=== PATIENT | male | born 1930 | race Caucasian/White ===

== ENCOUNTER → 2016-12-26 | Outpatient (CLI) | payer BC ==
[~2016-12-26] MED LIST: CALCIUM PO; CHOL200010 PO; HYDC25 PO; LISI40TA PO; MULT-190 PO; MULT-506 PO; SERT100T PO; [UNRECOGNIZED DRUG - OTHER] PO
== END | disposition home or self-care (01) ==
LOC: C.RDSM 14:38
PROVIDERS: ATTEND Physical Medicine & Rehabilitation Sports Medicine
DX: M13.811 Other specified arthritis, right shoulder (principal)

== ENCOUNTER → 2017-02-22 | Outpatient (CLI) | payer BC ==
[2017-02-22 10:51] LABS: BASO % 0.3 %; BASO ABS # 0.03 K/uL (0-0.2); COMPLETE YES; EOS % 2.5 %; HEMATOCRIT 40.6 % (42-52); IG% 0.2 %; LYMPH % 27.3 %; MEAN CORPUSCULAR HEMOGLOBIN 29.7 pg (25-34); MEAN CORPUSCULAR HGB CONC 34.5 g/dl (32-36); MEAN PLATELET VOLUME 9.3 fL (7.4-10.4); NEUT % 61.7 %; PLATELET COUNT 266 K/uL (130-400); RED BLOOD COUNT 4.72 M/uL (4.7-6.1)
[2017-02-22 11:04] LABS: ALB/GLOB RATIO 0.9 (0.9-2); ALT/SGPT 26 U/L (12-78); BLOOD UREA NITROGEN 28 mg/dl (7-18); BUN/CREATININE RATIO 25.2 (10-20); CALCIUM 8.8 mg/dl (8.5-10.1); CARBON DIOXIDE 28 mmol/L (21-32); CHLORIDE 107 mmol/L (98-107); FERRITIN 31.3 ng/ml (8.0-388.0); GLUCOSE 99 mg/dl (70-99); HDL CHOLESTEROL 42 mg/dl; POTASSIUM 3.9 mmol/L (3.5-5.1); SODIUM 141 mmol/L (136-145)
[2017-02-22 11:13] LABS: ALKALINE PHOSPHATASE 55 U/L (45-117); AST/SGOT 24 U/L (15-37); CHOLESTEROL 206 mg/dl (0-200); CHOLESTEROL/HDL RATIO 4.9; LDL CHOLESTEROL CALCULATED 125 mg/dl; TRIGLYCERIDES 196 mg/dl (0-150); VERY LOW DENSITY LIPOPROT CALC 39 mg/dl
[2017-02-22 11:15] LABS: ESTIMATED AVERAGE GLUCOSE 117 mg/dl; HA1C FLAG Normal (Normal)
--- NOTE | 2017-03-02 10:48 | CODING QUERY MEDICAL NECESSITY ---
TREATMENT RENDERED WITHOUT A DIAGNOSIS To promote full compliance with coding requirements relating to patient care, physician participation is requested in all cases of asw specialist uncertainty. Please assist us with providing a diagnosis/symptom for the test(s) below: A diagnosis/symptom was not documented on your Order. A valid diagnosis/symptom is required to bill all insurances. Please remember that we are unable to code a diagnosis of rule out, probable, possible, questionable, or suspected. Tests that require a diagnosis: * VITAMIN B12 DIAGNOSIS: Provider Signature: Date: Thank you Lory Will [employer] Once completed, please kindly fax back to [phone] For questions please call [phone]
== END | disposition home or self-care (01) ==
LOC: C.LABBC 07:31
PROVIDERS: ATTEND Internal Medicine
DX: D64.9 Anemia, unspecified (principal); E78.5 Hyperlipidemia, unspecified; R73.9 Hyperglycemia, unspecified; G62.9 Polyneuropathy, unspecified

== ENCOUNTER → 2017-03-30 | Outpatient (CLI) | payer BC ==
[2017-03-30 17:12] LABS: BLOOD UREA NITROGEN 30 mg/dl (7-18)
== END | disposition home or self-care (01) ==
LOC: C.LABBC 15:06
PROVIDERS: ATTEND Physical Medicine & Rehabilitation
DX: M48.06 Spinal stenosis, lumbar region (principal)

== ENCOUNTER → 2017-04-04 | Outpatient (CLI) | payer BC ==
[~2017-04-04] MED LIST changes: +GADAVIST IV PRN
--- NOTE | 2017-04-04 09:14 | DIAGNOSTIC IMAGING REPORT ---
LUMBAR SPINE COMBINATION HISTORY:86 yearsMaleLUMBAR PAIN . Bilateral leg weakness. History of prior lumbar decompression (prior left L4-L5 hemilaminectomy). COMPARISON: 06/12/2015 TECHNIQUE: Multiplanar multisequence MRI of the lumbar spine was obtained both with and without the use of 8 mL Gadavist IV contrast. FINDINGS: Conus medullaris terminates at the L1 level. Signal within the cord is unremarkable. There is no focal bone or soft tissue edema identified. No fracture or marrow replacing process. The imaged intra-abdominal intrapelvic structures demonstrate no acute abnormality. There is mild atrophy of the paraspinal musculature. Prior left hemilaminectomy at L4-L5. Partially imaged T11-T12 level appears unremarkable the sagittal imaging alone. T12-L1 also demonstrates no central canal or foraminal narrowing. L1-L2: Moderate facet arthropathy without central canal or foraminal narrowing. L2-L3: Moderate intervertebral disc space narrowing with posterior spondylitic spurring, facet arthropathy, ligamentum flavum redundancy, facet effusions and circumferential annular disc bulge. There is resultant mild central canal and right foraminal narrowing. Left foramen is patent. No significant change. L3-L4: Moderate intervertebral disc space narrowing with posterior spondylitic ridging, annular fissure and circumferential annular disc bulge in conjunction with moderate facet arthropathy, facet effusions and ligamentum flavum redundancy. This again causes moderate central canal and mild right foraminal narrowing. Left foramen is patent. L4-L5: Prior left hemilaminectomy. Unchanged 6 mm anterolisthesis L4 on L5 is likely on a degenerative basis as there is severe facet arthropathy and facet effusions at this level. Broad-based posterior disc bulge effaces the ventral thecal sac. There is unchanged mild left foraminal narrowing. The right foramen and central canal are patent. There is minimal posterior epidural enhancement at this level is likely postsurgical granulation tissue without significant mass effect or narrowing. L5-S1: Moderate facet disease with ligamentum flavum redundancy and facet effusions cause mild by foraminal narrowing. Central canal is patent. Unchanged. IMPRESSION: 1. Stable exam with redemonstration of prior left L4-L5 hemilaminectomy. Mild posterior epidural enhancement at this interspace likely reflects expected granulation tissue without significant narrowing of the central canal or neural foramen. 2. At L3-L4 combination of disc disease and facet arthropathy is again seen causing moderate central canal and mild right foraminal narrowing. 3. Additional unchanged discogenic degenerative changes at L2-L3 and L5-S1. 4. No focal bone marrow edema or compression fracture. The above report was generated using voice recognition software. It may contain grammatical, syntax or spelling errors. Electronically signed by: Zfeerino Briseno 04/04/2017 9:12 AM Dictated Date/Time: 04/04/2017 9:03 AM
== END | disposition home or self-care (01) ==
LOC: C.MRIBC 07:23
PROVIDERS: ATTEND Physical Medicine & Rehabilitation
DX: M48.06 Spinal stenosis, lumbar region (principal)

== ENCOUNTER → 2017-05-10 | Outpatient (CLI) | payer BC ==
[~2017-05-10] MED LIST changes: -GADAVIST IV PRN
--- NOTE | 2017-05-10 08:33 | DIAGNOSTIC IMAGING REPORT ---
CHEST 2 VIEWS ROUTINE CLINICAL HISTORY: Z01.818 Preoperative [id number] COMPARISON STUDY: 08/21/2012 FINDINGS: There is a stable thoracic scoliosis. The heart is normal in size. There is stable aortic tortuosity/ectasia. There is no failure. There is no focal pulmonary consolidation. There are no pleural effusions.[ IMPRESSION: No active disease in the chest. Electronically signed by: Jerry Link M.D. 05/10/2017 8:32 AM Dictated Date/Time: 05/10/2017 8:31 AM
== END | disposition home or self-care (01) ==
LOC: C.RAD 07:58
PROVIDERS: ATTEND Internal Medicine
DX: Z01.818 Encounter for other preprocedural examination (principal)

== ENCOUNTER → 2017-05-26 | Outpatient (CLI) | payer BC ==
[2017-05-26 09:41] LABS: BASO % 0.4 %; BASO ABS # 0.04 K/uL (0-0.2); COMPLETE YES; EOS % 3.4 %; HEMATOCRIT 40.9 % (42-52); IG% 0.3 %; LYMPH % 28.5 %; LYMPH ABS # 2.68 K/uL (1.2-3.4); MEAN CELL VOLUME 87.6 fL (80-100); MEAN CORPUSCULAR HEMOGLOBIN 29.1 pg (25-34); MEAN CORPUSCULAR HGB CONC 33.3 g/dl (32-36); MEAN PLATELET VOLUME 9.2 fL (7.4-10.4); MONO % 6.5 %; NEUT % 60.9 %; PLATELET COUNT 271 K/uL (130-400); RED BLOOD COUNT 4.67 M/uL (4.7-6.1); WHITE BLOOD COUNT 9.42 K/uL (4.8-10.8)
[2017-05-26 09:53] LABS: INR 1.1 (0.9-1.1); PROTHROMBIN TIME (PATIENT) 11.6 SECONDS (9.0-12.0)
[2017-05-26 10:08] LABS: BLOOD UREA NITROGEN 26 mg/dl (7-18); BUN/CREATININE RATIO 21.9 (10-20); CALCIUM 8.9 mg/dl (8.5-10.1); CARBON DIOXIDE 28 mmol/L (21-32); CHLORIDE 107 mmol/L (98-107); GLUCOSE 85 mg/dl (70-99); POTASSIUM 4.4 mmol/L (3.5-5.1); SODIUM 140 mmol/L (136-145)
== END | disposition home or self-care (01) ==
LOC: C.LAB 08:46
PROVIDERS: ATTEND Neurological Surgery
DX: Z01.812 Encounter for preprocedural laboratory examination (principal); R79.1 Abnormal coagulation profile

== ENCOUNTER → 2017-08-23 | Outpatient (CLI) | payer BC ==
[2017-08-23 10:54] LABS: HEMATOCRIT 40.2 % (42-52); MEAN CELL VOLUME 87.6 fL (80-100); MEAN CORPUSCULAR HEMOGLOBIN 29.2 pg (25-34); MEAN CORPUSCULAR HGB CONC 33.3 g/dl (32-36); MEAN PLATELET VOLUME 9.4 fL (7.4-10.4); PLATELET COUNT 266 K/uL (130-400); RED BLOOD COUNT 4.59 M/uL (4.7-6.1)
[2017-08-23 11:09] LABS: ESTIMATED AVERAGE GLUCOSE 111 mg/dl; HA1C FLAG Normal (Normal)
[2017-08-23 11:32] LABS: BLOOD UREA NITROGEN 34 mg/dl (7-18); BUN/CREATININE RATIO 26.9 (10-20); CALCIUM 8.8 mg/dl (8.5-10.1); CARBON DIOXIDE 28 mmol/L (21-32); CHLORIDE 101 mmol/L (98-107); CREATININE 1.27 mg/dl (0.60-1.40); GLUCOSE 107 mg/dl (70-99); SODIUM 134 mmol/L (136-145)
[2017-08-23 11:35] LABS: CHOLESTEROL 205 mg/dl (0-200); HDL CHOLESTEROL 51 mg/dl; LDL CHOLESTEROL CALCULATED 121 mg/dl; TRIGLYCERIDES 164 mg/dl (0-150); VERY LOW DENSITY LIPOPROT CALC 33 mg/dl
== END | disposition home or self-care (01) ==
LOC: C.LABBC 07:37
PROVIDERS: ATTEND Internal Medicine
DX: R73.9 Hyperglycemia, unspecified (principal); D72.829 Elevated white blood cell count, unspecified; E78.5 Hyperlipidemia, unspecified

== ENCOUNTER 2017-12-12 09:34 | Observation (INO) | payer BC, OTHER ==
[2017-11-14 09:37] VITALS: BMI 32.0
--- NOTE | 2017-11-14 10:10 | PAT Medication Instructions ---
Service Date Nov 14, 2017. Current Home Medication List , 1 TABLETS PO QAM Aripiprazole (Abilify), 2 MG PO PRN Cholecalciferol (Vitamin D), 2,000 INTUNIT PO QAM Epinephrine (Epipen), 0.3 MG IM UD Hydrochlorothiazide (Hydrochlorothiazide), 1 TAB PO QAM Lisinopril (Zestril), 20 MG PO QAM Multivitamin (Multivitamin), 1 TAB PO QAM Ocuvite Preservision (Ocuvite Preservision), 1 TAB PO QAM Sertraline Hcl (Zoloft), 150 MG PO QAM Medication Instructions For Your Scheduled Surgery - Hold the following medications the morning of surgery: Cholecalciferol (Vitamin D), 2,000 INTUNIT PO QAM Hydrochlorothiazide (Hydrochlorothiazide), 1 TAB PO QAM Lisinopril (Zestril), 20 MG PO QAM Multivitamin (Multivitamin), 1 TAB PO QAM Ocuvite Preservision (Ocuvite Preservision), 1 TAB PO QAM - Take the following medications the morning of surgery with a sip of water: Sertraline Hcl (Zoloft), 150 MG PO QAM Epinephrine (Epipen), 0.3 MG IM UD (if needed) Aripiprazole (Abilify), 2 MG PO PRN (if needed) - Take the following medications as scheduled the night before surgery: Epinephrine (Epipen), 0.3 MG IM UD (if needed) Aripiprazole (Abilify), 2 MG PO PRN (if needed) If you have any questions please call us at [phone] or [phone] or [phone]
[2017-11-14 11:05] LABS: BASO % 0.3 %; BASO ABS # 0.03 K/uL (0-0.2); EOS % 2.5 %; EOS ABS # 0.24 K/uL (0-0.5); HEMOGLOBIN 13.2 g/dL (14.0-18.0); IG# 0.03 K/uL (0.00-0.02); LYMPH % 24.2 %; LYMPH ABS # 2.31 K/uL (1.2-3.4); MEAN CELL VOLUME 85.2 fL (80-100); MEAN CORPUSCULAR HEMOGLOBIN 28.8 pg (25-34); MEAN CORPUSCULAR HGB CONC 33.8 g/dl (32-36); MONO % 7.9 %; MONO ABS # 0.75 K/uL (0.11-0.59); NEUT % 64.8 %; NEUT ABS # 6.18 K/uL (1.4-6.5); PLATELET COUNT 244 K/uL (130-400); RED CELL DISTRIBUTION WIDTH CV 14.6 % (11.5-14.5); RED CELL DISTRIBUTION WIDTH SD 45.5 fL (36.4-46.3); WHITE BLOOD COUNT 9.54 K/uL (4.8-10.8)
[2017-11-14 11:16] LABS: CALCIUM 9.2 mg/dl (8.5-10.1); CREATININE 1.11 mg/dl (0.60-1.40); INR 1.1 (0.9-1.1); POTASSIUM 4.3 mmol/L (3.5-5.1)
--- NOTE | 2017-12-11 22:03 | HISTORY & PHYSICAL EXAMINATION ---
DATE OF ADMISSION: 12/12/2017 CHIEF COMPLAINT: Primary osteoarthritis of the right shoulder. HISTORY OF PRESENT ILLNESS: Jordon is a pleasant 87-year-old male who has been dealing with a 1 year history of chronic increasing right shoulder pain. His symptoms actually started back in 1948 when he dislocated his shoulder playing football. He had it reduced on the field. He has had on and off low grade shoulder symptoms since. Over the last year his shoulder has gotten much worse. This has gotten to the point to where he is having trouble sleeping at night and doing any simple activities away from his body. He is living in constant shoulder pain. X-rays and clinical examination in my office demonstrated advanced osteoarthritis of the shoulder. We tried conservative treatment, but it failed. His shoulder pain is affecting his quality of life. We discussed his age and he would still like to proceed with a right total shoulder arthroplasty. PAST MEDICAL HISTORY: Significant for depression and hypertension. PAST SURGICAL HISTORY: Significant for varicose veins, total hip arthroplasty, cataracts and 2 back surgeries. ALLERGIES: None. MEDICATIONS: Include hydrochlorothiazide, lisinopril, Zoloft, vitamin D3, calcium, Aleve and Abilify. FAMILY HISTORY: Significant for Alzheimer's disease. SOCIAL HISTORY: The patient is , rarely drinks and remains active. REVIEW OF SYSTEMS: He complains mostly of right shoulder pain. All other pertinent review of systems are negative. PHYSICAL EXAMINATION: GENERAL: He is awake, alert and orient x3. He is in no apparent distress. He is very pleasant. HEENT: Pupils equal, round and reactive to light. Extraocular motion intact. Oral mucosa is pink and moist. HEART: Regular rate per radial pulse. LUNGS: Carmen symmetrically bilaterally with no audible breath sounds. ABDOMEN: Soft, nontender, nondistended. MUSCULOSKELETAL: On physical examination of the right shoulder, he does have a down slope to his right shoulder compared to the left. He has active elevation, about 120 degrees of forward elevation, 100 degrees of abduction. He has 5/5 muscle strength with full can test and external rotation. Negative belly press test. He has a lot of crepitus with range of motion versus pain located over the anterior glenohumeral joint line. IMAGING DATA: X-rays of the shoulder do show advanced osteoarthritis. There is joint space narrowing and osteophyte formation. There is mostly central wear of the glenoid. IMPRESSION: Advanced osteoarthritis of the right shoulder. PLAN: We will proceed with a Biomet comprehensive right total shoulder arthroplasty. Postoperatively, he will be placed in an arm sling and kept overnight for postoperative medical management.
[~2017-12-12] VITALS: Ht 167.6 cm; Wt 86.4 kg
[2017-12-12] VITALS (8 sets, daily range): BP systolic 111–165; BP diastolic 61–84; PULSE 71–80; TEMP 36.3–36.8; O2SAT 95–98; Ht 167.6 cm; Wt 86.4 kg
[~2017-12-12 09:34] MED LIST changes: +ACETAMINOPHEN 500 MG TAB PO SCH; +ARIP2TAB3 PO; +BUPIVACAINE 0.5 % 5 MG/1 ML PF 10ML VIAL ONE; +CEFAZOLIN 2000MG IV PUSH 15 ML IV SCH; +EPP3/2 IM; +EpINEphrine INJ 1MG/ML AMP 1 MG/ML AMP ONE; +FAMOTIDINE 20 MG TAB PO SCH; +GABAPENTIN 300 MG CAP PO SCH; -HYDC25 PO; +HYDR12.55 PO; +LACTATED RINGER'S 1000ML 1,000 ML IV SCH; +LACTATED RINGER'S 1000ML IV SCH; +ROPIVACAINE 0.5% 5 MG/ML 30 ML VIAL ONE; +ROPIVACAINE 5MG/ML 30 ML 150 MG, BUPIVACAINE 0.5% MPF INJ 30 ML, EpINEphrine HCL INJ 0.... INFIL SCH
--- NOTE | 2017-12-12 11:29 | History & Physical Bridge Note ---
H&P Re-Evaluation Bridge Note: I have examined the patient, reviewed the History & Physical and in the interval since the performance of the History & Physical I have noted the following changes of clinical significance: No changes noted
[2017-12-12] MEDS ORDERED: BACITRACIN 50000 UNIT VIAL ONE (11:51)
[2017-12-12] MEDS ORDERED: FENTANYL CITRATE INJ 50 MCG/1 ML 2 ML VIAL ONE ×2 (11:57→13:16)
[2017-12-12] MEDS ORDERED: MIDAZOLAM HCL 1 MG/ML 2ML VIAL ONE (11:57)
[2017-12-12] MEDS ORDERED: ATROPINE SULFATE 0.1 MG/ML 5ML SYR IV PRN (12:15)
[2017-12-12] MEDS ORDERED: FENTANYL CITRATE INJ 50 MCG/1 ML 2 ML VIAL IV PRN (12:15)
[2017-12-12] MEDS ORDERED: EpHEDrine SULFATE INJ 50 MG/ML AMP IV PRN (12:15)
[2017-12-12] MEDS ORDERED: ONDANSETRON INJ 2 MG/ML 2 ML VIAL IV PRN ×2 (12:15→14:15)
[2017-12-12] MEDS ORDERED: HYDROmorphone INJ 1 MG/ML SYR IV PRN (12:15)
[2017-12-12] MEDS ORDERED: CEFAZOLIN SOD 2000MG/15 ML IV PUSH IV ONE (12:17)
[2017-12-12] MEDS ORDERED: ORTHO JOINT ANESTHETIC ONE (12:19)
[2017-12-12] MEDS ORDERED: NURSING VERBAL MED ORDER STA (12:20)
[2017-12-12] MEDS: TRANEXAMIC ACID INJ 1,000 MG x 2 Bags IV SCH ×4 (12:27→16:26)
[2017-12-12] MEDS ORDERED: PROPOFOL IV EMULSION 10 MG/ML 20 ML VIAL IV ONE (13:14)
[2017-12-12] MEDS ORDERED: LIDOCAINE HCL 2% 2 ML VIAL (20MG/ML) ONE (13:14)
[2017-12-12] MEDS ORDERED: DEXAMETHASONE SOD INJ 4 MG/ML VIAL ONE (13:14)
[2017-12-12] MEDS ORDERED: ONDANSETRON INJ 2 MG/ML 2 ML VIAL ONE (13:14)
--- NOTE | 2017-12-12 14:08 | [facility] Post Operative Brief Note ---
Immediate Operative Summary Operative Date Dec 12, 2017. Pre-Operative Diagnosis Advanced osteoarthritis of the right shoulder Post-Operative Diagnosis Advanced osteoarthritis of the right shoulder Procedure(s) Performed Right Total Shoulder Arthroplasty-Cemented Surgeon Dr. Schwartz Caramel Candy Maker Surgeon(s) Keron Mendoza PA-C Estimated Blood Loss 200 ml Findings Consistent with Post-Op Diagnosis Specimens A. Right Humeral Head Anesthesia Type General Regional Complication(s) none Disposition Disposition: Recovery Room / PACU
[2017-12-12] MEDS ORDERED: NALOXONE HCL 0.4 MG/1 ML VIAL/CARP IV PRN (14:15)
[2017-12-12] MEDS ORDERED: OXYCODONE HCL IR 5 MG TAB (IMMEDIATE RELEASE) PO PRN (14:15)
[2017-12-12] MEDS ORDERED: BISACODYL 10 MG SUPP PR PRN (14:15)
[2017-12-12] MEDS ORDERED: METOCLOPRAMIDE HCL INJ 5 MG/ML 2 ML VIAL IV PRN (14:15)
[2017-12-12] MEDS ORDERED: MoRPHine SULFATE 2 MG/ML CARP IV PRN (14:15)
[2017-12-12] MEDS ORDERED: MAGNESIUM HYDROXIDE SUSP 30 ML UDC PO PRN (14:15)
[2017-12-12] MEDS ORDERED: SOD PHOSPHATE/SOD BIPHOSPHATE ENEMA 132 ML BTL PR PRN (14:15)
[2017-12-12] MEDS ORDERED: PHENYLEPHRINE 100MCG/ML 5ML SYR ONE (14:38)
--- NOTE | 2017-12-12 14:40 | OPERATIVE REPORT ---
DATE OF OPERATION: 12/12/2017 PREOPERATIVE DIAGNOSIS: Primary osteoarthritis of the right shoulder. POSTOPERATIVE DIAGNOSIS: Same. PROCEDURE: Right total shoulder arthroplasty. SURGEON: Dr. Seth Schwartz. [employer]: Keron Mendoza PA-C, whose assistance was necessary for positioning the arm and helping with instrumentation and closure. ANESTHESIA: General with a right interscalene nerve block. COMPLICATIONS: None. CONDITION: Stable to PACU. IMPLANTS USED: I used a Biomet comprehensive right total shoulder arthroplasty system with a size 17 mini pressfit stem, a medium sized glenoid with a Regenerex peg and a 46 x 18 mm eccentric humeral head. INDICATIONS: Jordon is a pleasant 87-year-old male who presented to my office with chronic increasing right shoulder pain. X-rays and clinical examination were diagnostic for primary osteoarthritis of the right shoulder. After failing conservative treatment and after discussions about his age and his poor quality of life because of shoulder pain, he elected to undergo a total shoulder arthroplasty. DESCRIPTION OF PROCEDURE: On 12/12/2017, he arrived at [facility] for the above procedure. He was seen in the preoperative holding area and the operative extremity was identified and signed. He was given a preoperative antibiotic and a right interscalene nerve block. He was taken back to the operating room, laid on the table in supine position and put under general anesthesia. He was then put into the beachchair position. The right shoulder was prepped and draped in sterile fashion. Time-out was done and the patient's operative extremity was properly identified. A deltopectoral approach was used. Dissection was taken down through the fascia and the anterior shoulder was exposed. The long head of the biceps tendon was tenodesed to the upper border of the pec major and the rotator interval was opened. The subscapularis was tenotomized off the lesser tuberosity with a centimeter of cuff tissue remaining. The proximal humerus was exposed. Sequential reaming up to a size 17 reamer was done. Off that reamer, a proximal humeral resection guide was placed and the proximal humerus was resected at 135 degrees of inclination and 30 degrees of retroversion. Osteophytes were removed. The head was removed and the glenoid was exposed. Time was spent doing a circumferential capsular and labral release. The Biomet signature guide was then snapped on to the anterior glenoid. A guide pin was sent down the total shoulder arthroplasty hole. A medium propeller reamer was used to ream the glenoid. The central peg hole was then drilled followed by 3 peripheral peg holes. A trial glenoid was used and showed excellent fit. The final glenoid was then cemented into place. The surrounding soft tissues were then injected with 100 mL of an orthopedic pain control cocktail. The proximal humerus was then exposed. Sequential broaching up to a size 17 broach was done. Off that broach, a trial 46 x 18 mm head was used. The shoulder was reduced, brought through a full range of motion and felt to be stable. The trial components were then removed. The final size 17 mini stem was then impacted into place. A 46 x 18 mm eccentric head was then impacted onto the stem. The shoulder was reduced. The subscapularis was then tenodesed back to the lesser tuberosity with transosseous FiberWire sutures and [id number] sutures. A single suture was placed in the lateral rotator interval. The axillary nerve was palpated. The wound was then irrigated with 3 liters of normal saline solution with bacitracin. A drain was placed. Skin was closed with 2-0 Vicryl, 3-0 V-Loc suture and gardenia. He was then placed in a soft dressing and regular arm sling. He was then extubated, transferred to a litter and taken to the postanesthesia care unit in stable condition. He tolerated the procedure well. I attest to the content of the Intraoperative Record and any orders documented therein. Any exception s are noted below.
--- NOTE | 2017-12-12 15:14 | Anesthesiology Progress Note ---
Anesthesia Post Op Note Date & Time Dec 12, 2017 at 15:14 Vital Signs Pain Intensity: 0 Vital Signs Past 12 Hours Date Time Temp Pulse Resp B/P (MAP) Pulse Ox O2 Delivery O2 Flow Rate FiO2 12/12/17 15:05 36.2 76 16 119/70 95 Nasal Cannula 2 12/12/17 14:55 79 16 148/74 96 Nasal Cannula 2 12/12/17 14:45 74 16 131/73 96 Oxymask 10 12/12/17 14:35 76 16 128/73 100 Oxymask 10 12/12/17 14:26 36.2 76 16 144/70 100 Oxymask 10 12/12/17 10:14 36.5 77 20 126/61 97 Room Air Notes Mental Status: alert / awake / arousable, participated in evaluation Pt Amnestic to Procedure: Yes Nausea / Vomiting: adequately controlled Pain: adequately controlled Airway Patency, RR, SpO2: stable & adequate BP & HR: stable & adequate Hydration State: stable & adequate Anesthetic Complications: no major complications apparent
--- NOTE | 2017-12-12 15:14 | DIAGNOSTIC IMAGING REPORT ---
R SHOULDER MIN 2 VIEWS ROUTINE HISTORY: 87 years-old Male Post shoulder surgery right shoulder arthroplasty. Degenerative joint disease. COMPARISON: Right shoulder radiographs 12/26/2016 TECHNIQUE: 2 views of the right shoulder FINDINGS: Postoperative changes from right shoulder arthroplasty. Alignment appears satisfactory without evidence of periprosthetic fracture. No retained foreign body identified. Skin gardenia are noted along with a surgical drain and expected postsurgical soft tissue swelling and deep tissue air. The right lung appears hypoinflated with right basilar opacities suggesting atelectasis. IMPRESSION: Right shoulder arthroplasty with satisfactory alignment. The above report was generated using voice recognition software. It may contain grammatical, syntax or spelling errors. Electronically signed by: Zeferino Briseno M.D. 12/12/2017 3:13 PM Dictated Date/Time: 12/12/2017 3:12 PM
[2017-12-12] MEDS ORDERED: IV FLUIDS COMPLETED PRN (15:15)
[2017-12-12] MEDS ORDERED: ARIPIprazole 1 MG/ML ORAL SOLN 150 ML BTL PO PRN (16:00)
[2017-12-12] MEDS: POTASSIUM CHLORIDE INJ 10 MEQ in SODIUM CHLORIDE 0.9% 1000ML 1,000 ML IV SCH (16:24)
[2017-12-12] MEDS: CEFAZOLIN IV 2,000 MG in SYRINGE 0 ML IV SCH (20:15)
[2017-12-12] MEDS: DOCUSATE SODIUM 100 MG CAP PO SCH (20:22)
[2017-12-12] MEDS ORDERED: SENNA 8.6 MG TAB PO SCH (21:00)
[2017-12-12] MEDS: ACETAMINOPHEN IV 1,000 MG in EMPTY BAG 0 ML IV SCH (22:36)
[2017-12-13] MEDS: POTASSIUM CHLORIDE INJ 10 MEQ in SODIUM CHLORIDE 0.9% 1000ML 1,000 ML IV SCH (02:22)
[2017-12-13 03:25] VITALS: BP 111/69; PULSE 67; TEMP 36.5; O2SAT 94
[2017-12-13] MEDS: CEFAZOLIN IV 2,000 MG in SYRINGE 0 ML IV SCH (04:06)
[2017-12-13] MEDS: ACETAMINOPHEN IV 1,000 MG in EMPTY BAG 0 ML IV SCH (05:21)
[2017-12-13] MEDS ORDERED: RXC5 PO (07:08)
--- NOTE | 2017-12-13 07:09 | Discharge Instructions ---
Discharge Instructions Date of Service Dec 13, 2017. Admission Reason for Admission: Right Shoulder Degenerative Joint Disease Discharge Discharge Diagnosis / Problem: Right Total Shoulder Discharge Goals Goal(s): Decrease discomfort, Improve function Activity Recommendations Activity Limitations: as noted below . Instructions / Follow-Up Instructions / Follow-Up Activity and Therapy Recommendations: * Wear your sling for 3 weeks, unless otherwise instructed. You may remove your sling to shower and to dress, but otherwise, you should be in your sling at all times, including while sleeping * The shoulder replacement is very stable and you can use your hand while in the sling * Physical Therapy should start about 3-5 days from your day of surgery. Therapy will last about 8-12 weeks * You were shown a series of exercises in the hospital. Do these exercises daily including the exercises you were shown in physical therapy. Medications: * Narcotic You will likely be sent home from the hospital with a prescription for the narcotic pain medication that worked best throughout your stay. * Other medications may be prescribed for specific circumstances. If you have any questions, please call the office at . * Resume previous home medications unless otherwise instructed Showering: You may shower 5 days from the day of surgery. Let the soapy shower water run over the gardenia. Do not scrub or soak the incision. Things To Watch For: * Drainage from the incision site that occurs more than one week after your surgery. * Increased redness at the incision site. * Fever above 102 degrees Fahrenheit. * Unusual chest pain or shortness of breath. * Call [facility] at with any of the above problems Follow-Up Visit: Follow-up with Dr. Schwartz 2 weeks after your day of surgery. An appointment was probably scheduled when you signed-up for surgery in the office. If you have any questions call Office Instructions: More detailed instructions as well as Frequently Asked Questions were provided in a folder by our office when you signed-up for surgery. Please review these instructions when you get home. If you have any further questions or concerns, please feel free to call the office at [phone] Current Hospital Diet Patient's current hospital diet: Regular Diet Discharge Diet Recommended Diet: Regular Diet Procedures Procedures Performed: Right Total Shoulder Arthroplasty-Cemented Pending Studies Studies pending at discharge: no Medical Emergencies . Who to Call and When: Medical Emergencies: If at any time you feel your situation is an emergency, please call 911 immediately. . Non-Emergent Contact Non-Emergency issues call your: Surgeon Call Non-Emergent contact if: wound has increased drainage, wound has increased redness . "Provider Documentation" section prepared by Seth Schwartz. .
[2017-12-13 07:25] VITALS: BP 112/68; PULSE 62; TEMP 36.6; O2SAT 91
[2017-12-13 07:30] VITALS: O2SAT 91
--- NOTE | 2017-12-13 07:43 | PROGRESS NOTE ---
DATE: 12/13/2017 CHIEF COMPLAINT: Status post right total shoulder arthroplasty postop day #1. PROGRESS: Jordon was seen and examined at bedside today. Overall, he is doing very well. He has very little pain in the shoulder. He has no complaints. PHYSICAL EXAMINATION: RIGHT SHOULDER: The dressing is clean and dry and the drain is to suction. He is wearing a sling as instructed. His radial, median and ulnar nerves were checked and intact at his wrist. His axillary nerve was not checked yet. LABORATORY DATA: Still pending. His vital signs are all stable on room air. He is voiding on his own. X-rays postoperatively of the right shoulder show the prosthesis to be in anatomic alignment without any evidence of fracture, dislocation or loosening. IMPRESSION: Status post right total shoulder arthroplasty postop day #1. PLAN: At this point, he is doing well. He will be seen by physical therapy today to do hand, wrist, elbow and pendulum exercises. The nursing staff can change the dressing, pull the drain and discharge him to home later this morning.
--- NOTE | 2017-12-13 07:46 | DISCHARGE SUMMARY ---
DISCHARGE DIAGNOSIS: Primary osteoarthritis of the right shoulder. PROCEDURE: Right total shoulder arthroplasty on 12/12/[address] Seth Schwartz. DISCHARGE INSTRUCTIONS: 1. Oxycodone 5 mg every 4 hours as needed for pain. 2. Abilify 2 mg as needed. 3. Hydrochlorothiazide 12.5 mg daily. 4. Zestril 20 mg daily. 5. Zoloft 150 mg daily. 6. Continue all other vitamins minerals. 7. Right arm sling for 3 weeks. 8. Follow up with Dr. Schwartz in 2 weeks. 9. Call the office of Dr. Schwartz with any questions or concerns. HOSPITAL COURSE: Jordon is an 87-year-old male who presented to my office with complaints of chronic increasing right shoulder pain. X-ray and clinical examination were diagnostic for primary osteoarthritis of the right shoulder. It was affecting his quality of life. After discussions regarding his age, we elected to proceed with a total shoulder arthroplasty. On 12/12/2017, he arrived at [facility] and underwent a right total shoulder arthroplasty without complication. He had a general anesthetic and a right interscalene nerve block. Postoperatively, he was placed in an arm sling and discharged to general orthopedic floor. His hospital course was uneventful. On postop day #1, he was having very little pain in the shoulder. He was up and ambulating well with physical therapy and able to do hand, wrist, elbow and pendulum exercises. The nursing staff can change the dressing and pull the drain. He was subsequently discharged to home with the above instructions.
[2017-12-13 08:23] LABS: HEMATOCRIT 32.7 % (42-52); HEMOGLOBIN 11.1 g/dL (14.0-18.0); MEAN CELL VOLUME 85.8 fL (80-100); MEAN CORPUSCULAR HEMOGLOBIN 29.1 pg (25-34); MEAN CORPUSCULAR HGB CONC 33.9 g/dl (32-36); MEAN PLATELET VOLUME 8.7 fL (7.4-10.4); PLATELET COUNT 189 K/uL (130-400); RED CELL DISTRIBUTION WIDTH CV 14.6 % (11.5-14.5); RED CELL DISTRIBUTION WIDTH SD 45.7 fL (36.4-46.3); WHITE BLOOD COUNT 12.99 K/uL (4.8-10.8)
[2017-12-13 08:54] LABS: CALCIUM 7.9 mg/dl (8.5-10.1); CREATININE 1.36 mg/dl (0.60-1.40); POTASSIUM 4.1 mmol/L (3.5-5.1)
[2017-12-13] MEDS ORDERED: LISINOPRIL 20 MG TAB PO SCH (09:00)
[2017-12-13] MEDS ORDERED: SERTRALINE HCL 50 MG TAB PO SCH (09:00)
[2017-12-13] MEDS ORDERED: MULTIVITAMIN TAB PO SCH (09:00)
[2017-12-13] MEDS ORDERED: HYDROCHLOROTHIAZIDE 25 MG TAB PO SCH (09:00)
[2017-12-13] MEDS: DOCUSATE SODIUM 100 MG CAP PO SCH (09:24)
[2017-12-13 10:13] VITALS: BP 112/68; PULSE 62; TEMP 36.6; O2SAT 91
--- NOTE | 2017-12-13 11:01 | Anesthesiology Progress Note ---
Anesthesia Post Op Note Date & Time Dec 13, 2017 at 11:01 Vital Signs Pain Intensity: 0.0 Vital Signs Past 12 Hours Date Time Temp Pulse Resp B/P (MAP) Pulse Ox O2 Delivery O2 Flow Rate FiO2 12/13/17 10:13 36.6 62 14 91 Room Air 12/13/17 08:10 Room Air 12/13/17 07:30 91 Room Air 12/13/17 07:25 36.6 62 14 112/68 (83) 91 Room Air 12/13/17 03:25 36.5 67 16 111/69 (83) 94 Room Air 12/12/17 23:35 96 Room Air 12/12/17 23:10 36.8 76 16 112/70 (84) 96 Nasal Cannula 1.0 Notes Mental Status: alert / awake / arousable, participated in evaluation Pt Amnestic to Procedure: Yes Nausea / Vomiting: adequately controlled Pain: adequately controlled Airway Patency, RR, SpO2: stable & adequate BP & HR: stable & adequate Hydration State: stable & adequate Anesthetic Complications: no major complications apparent
== END 2017-12-13 10:40 | disposition home or self-care (01) ==
LOC: C.ACU 09:34 → C.3E 12:06 → ENRESERV 15:14
PROVIDERS: ADMIT Orthopaedic Surgery; ATTEND Orthopaedic Surgery
DX: M19.011 Primary osteoarthritis, right shoulder (principal); N18.9 Chronic kidney disease, unspecified; I12.9 Hypertensive chronic kidney disease with stage 1 through stage 4 chronic kidney disease, or unspecified chronic kidney disease; F41.9 Anxiety disorder, unspecified; F32.9 Major depressive disorder, single episode, unspecified; Z88.0 Allergy status to penicillin; Z88.2 Allergy status to sulfonamides; Z98.890 Other specified postprocedural states; Z96.642 Presence of left artificial hip joint; Z98.41 Cataract extraction status, right eye; Z85.828 Personal history of other malignant neoplasm of skin

== ENCOUNTER → 2018-05-14 | Outpatient (CLI) | payer BC ==
[~2018-05-14] MED LIST changes: -ACETAMINOPHEN 500 MG TAB PO SCH; -BUPIVACAINE 0.5 % 5 MG/1 ML PF 10ML VIAL ONE; -CEFAZOLIN 2000MG IV PUSH 15 ML IV SCH; -EpINEphrine INJ 1MG/ML AMP 1 MG/ML AMP ONE; -FAMOTIDINE 20 MG TAB PO SCH; -GABAPENTIN 300 MG CAP PO SCH; -LACTATED RINGER'S 1000ML 1,000 ML IV SCH; -LACTATED RINGER'S 1000ML IV SCH; -ROPIVACAINE 0.5% 5 MG/ML 30 ML VIAL ONE; -ROPIVACAINE 5MG/ML 30 ML 150 MG, BUPIVACAINE 0.5% MPF INJ 30 ML, EpINEphrine HCL INJ 0.... INFIL SCH; +RXC5 PO
== END | disposition home or self-care (01) ==
LOC: C.LABBC 09:09
PROVIDERS: ATTEND Psychiatry & Neurology Psychiatry
DX: Z51.81 Encounter for therapeutic drug level monitoring (principal); Z79.899 Other long term (current) drug therapy